=== PATIENT | male | born 1975 | race Caucasian/White ===

== ENCOUNTER 2017-10-11 14:22 | Emergency (ER) | payer MEDICAID ==
[2015-02-09 08:45] VITALS: BMI 34.5
[~2017-10-11 14:22] MED LIST: BENTYL 20 MG TA20 MG PO; KLONOPIN1 MG PO; PRILOSEC20 MG PO; PROZAC10 MG PO; TENORMIN50 MG PO; TRAZODONE HCL50 MG PO; TYLENOL W/CODEI1 TAB PO; VENTOLIN HFA18 GM INH
[2017-10-11 15:35] LABS: BASOPHILS 0.2 % (0-2); EOSINOPHILS 0.8 % (0-7); HEMATOCRIT 42.3 % (42.0-54.0); HEMOGLOBIN 14.1 g/dL (13.5-17.5); IMMATURE GRANULOCYTES 0.3 % (0-5); LYMPHOCYTES 18.8 % (15-50); MCH 29.1 pg (26.0-34.0); MCHC 33.3 g/dL (31.0-37.0); MCV 87.2 fL (80.0-100.0); MEAN PLATELET VOLUME 9.6 fL (7.4-10.4); MONOCYTES 5.2 % (2-11); NEUTROPHILS 74.7 % (40-80); PLATELET COUNT 253 10x3/uL (130-400); RBC 4.85 10x6/uL (4.20-6.10); RDW 13.1 % (11.5-14.5); WBC 9.5 10x3/uL (4.8-10.8)
[2017-10-11 15:56] LABS: ALBUMIN 3.5 g/dL (3.4-5.0); ANION GAP 12.8 mmol/L (8-16); BILIRUBIN - TOTAL 0.2 mg/dL (0.2-1.3); CALCIUM 8.5 mg/dL (8.5-10.1); CARBON DIOXIDE 26.3 mmol/L (21.0-32.0); CREATININE - SERUM 1.2 mg/dL (0.6-1.3); POTASSIUM - SERUM 4.1 mmol/L (3.5-5.1); PROTEIN - SERUM 6.5 g/dL (6.4-8.2)
== END 2017-10-11 17:03 | disposition home or self-care (01) ==
LOC: D.ER 14:22
PROVIDERS: Emergency Medicine
DX: K52.9 Noninfective gastroenteritis and colitis, unspecified (principal)

== ENCOUNTER 2018-02-11 08:26 | Emergency (ER) | payer MEDICAID ==
[2015-02-09 08:45] VITALS: BMI 34.5
[2018-02-11 09:15] LABS: BASOPHILS 0.2 % (0-2); EOSINOPHILS 0 % (0-7); HEMATOCRIT 47.3 % (42.0-54.0); HEMOGLOBIN 15.7 g/dL (13.5-17.5); IMMATURE GRANULOCYTES 0.4 % (0-5); LYMPHOCYTES 27.1 % (15-50); MCH 28.1 pg (26.0-34.0); MCHC 33.2 g/dL (31.0-37.0); MCV 84.6 fL (80.0-100.0); MONOCYTES 7.7 % (2-11); NEUTROPHILS 64.6 % (40-80); RBC 5.59 10x6/uL (4.20-6.10); RDW 14.9 % (11.5-14.5); WBC 5.5 10x3/uL (4.8-10.8)
[2018-02-11 09:24] LABS: PLATELET COUNT 159 10x3/uL (130-400)
[2018-02-11 09:28] LABS: ALBUMIN 3.5 g/dL (3.4-5.0); ALKALINE PHOSPHATASE 52 U/L (46-116); ALT (SGPT) 39 U/L (10-68); BILIRUBIN - TOTAL 0.29 mg/dL (0.2-1.3); CALC OSMOLALITY 276 mosm/kg (275-300); CALCIUM 8.7 mg/dL (8.5-10.1); CARBON DIOXIDE 25.2 mmol/L (21.0-32.0); CHLORIDE - SERUM 103 mmol/L (98-107); GLUCOSE 94 mg/dL (74-106); POTASSIUM - SERUM 4.1 mmol/L (3.5-5.1); PROTEIN - SERUM 6.5 g/dL (6.4-8.2); SODIUM 138 mmol/L (136-145); UREA NITROGEN 14 mg/dL (7-18); eGFR NON AFRICAN AMERICAN 88 mL/min (90-120)
[2018-02-11 09:40] LABS: CKMB 0.4 U/L (0.0-3.6); CREATINE KINASE 71 UL (21-232)
[2018-02-11 09:41] LABS: TROPONIN-I < 0.017 ng/mL (0.000-0.060)
== END 2018-02-11 10:45 | disposition home or self-care (01) ==
LOC: D.ER 08:26
PROVIDERS: Family Medicine
DX: S20.219A Contusion of unspecified front wall of thorax, initial encounter (principal); S10.93XA Contusion of unspecified part of neck, initial encounter; S00.83XA Contusion of other part of head, initial encounter; X58.XXXA Exposure to other specified factors, initial encounter; Y93.89 Activity, other specified; Y92.89 Other specified places as the place of occurrence of the external cause; M79.1 Myalgia; T14.8XXA Other injury of unspecified body region, initial encounter; I10 Essential (primary) hypertension

== ENCOUNTER 2018-02-24 02:39 | Emergency (ER) | payer MEDICAID ==
[2015-02-09 08:45] VITALS: BMI 34.5
[2018-02-24 03:46] LABS: BASOPHILS 0.2 % (0-2); EOSINOPHILS 0 % (0-7); HEMATOCRIT 45.4 % (42.0-54.0); HEMOGLOBIN 15.3 g/dL (13.5-17.5); IMMATURE GRANULOCYTES 0.6 % (0-5); LYMPHOCYTES 23.3 % (15-50); MCH 28.4 pg (26.0-34.0); MCHC 33.7 g/dL (31.0-37.0); MCV 84.4 fL (80.0-100.0); MEAN PLATELET VOLUME 9.8 fL (7.4-10.4); MONOCYTES 5.7 % (2-11); NEUTROPHILS 70.2 % (40-80); PLATELET COUNT 269 10x3/uL (130-400); RBC 5.38 10x6/uL (4.20-6.10); WBC 9.9 10x3/uL (4.8-10.8)
[2018-02-24 03:59] LABS: ALBUMIN 3.6 g/dL (3.4-5.0); ANION GAP 13.4 mmol/L (8-16); BILIRUBIN - TOTAL 0.13 mg/dL (0.2-1.3); CALCIUM 8.7 mg/dL (8.5-10.1); CARBON DIOXIDE 27.5 mmol/L (21.0-32.0); CREATININE - SERUM 1.3 mg/dL (0.6-1.3); POTASSIUM - SERUM 4.9 mmol/L (3.5-5.1); PROTEIN - SERUM 6.8 g/dL (6.4-8.2)
== END 2018-02-24 04:59 | disposition home or self-care (01) ==
LOC: D.ER 02:39
PROVIDERS: Emergency Medicine
DX: S16.1XXA Strain of muscle, fascia and tendon at neck level, initial encounter (principal); W01.0XXA Fall on same level from slipping, tripping and stumbling without subsequent striking against object, initial encounter; Y93.01 Activity, walking, marching and hiking; Y92.410 Unspecified street and highway as the place of occurrence of the external cause; R07.89 Other chest pain; F17.200 Nicotine dependence, unspecified, uncomplicated; I10 Essential (primary) hypertension

== ENCOUNTER 2018-03-24 03:46 | Emergency (ER) | payer MEDICAID ==
[2015-02-09 08:45] VITALS: BMI 34.5
[2018-03-24 04:53] LABS: BASOPHILS 0.3 % (0-2); EOSINOPHILS 0 % (0-7); HEMATOCRIT 40.9 % (42.0-54.0); HEMOGLOBIN 13.6 g/dL (13.5-17.5); IMMATURE GRANULOCYTES 0.3 % (0-5); LYMPHOCYTES 20.7 % (15-50); MCH 28.4 pg (26.0-34.0); MCHC 33.3 g/dL (31.0-37.0); MCV 85.4 fL (80.0-100.0); MEAN PLATELET VOLUME 9.5 fL (7.4-10.4); MONOCYTES 5.8 % (2-11); NEUTROPHILS 72.9 % (40-80); RBC 4.79 10x6/uL (4.20-6.10); RDW 15.2 % (11.5-14.5); WBC 7.6 10x3/uL (4.8-10.8)
[2018-03-24 04:55] LABS: PLATELET COUNT 174 10x3/uL (130-400)
[2018-03-24 05:04] LABS: ALBUMIN 3.8 g/dL (3.4-5.0); ANION GAP 15.1 mmol/L (8-16); BILIRUBIN - TOTAL 0.14 mg/dL (0.2-1.3); CALCIUM 9.2 mg/dL (8.5-10.1); CARBON DIOXIDE 27.6 mmol/L (21.0-32.0); CREATININE - SERUM 1.3 mg/dL (0.6-1.3); POTASSIUM - SERUM 4.7 mmol/L (3.5-5.1); PROTEIN - SERUM 7.2 g/dL (6.4-8.2)
== END 2018-03-24 06:40 | disposition home or self-care (01) ==
LOC: D.ER 03:46
PROVIDERS: Family Medicine
DX: M54.5 Low back pain (principal); W19.XXXA Unspecified fall, initial encounter; Y93.01 Activity, walking, marching and hiking; Y92.410 Unspecified street and highway as the place of occurrence of the external cause; I10 Essential (primary) hypertension

== ENCOUNTER 2018-04-11 12:45 | Emergency (ER) | payer MEDICAID ==
[~2018-04-11] VITALS: Ht 170.2 cm; Wt 81.8 kg
[2018-04-11 12:48] VITALS: Ht 170.2 cm; Wt 81.8 kg
[2018-04-11] MEDS ORDERED: VOLTAREN75 MG PO (13:25)
[2018-04-11] MEDS ORDERED: ROBAXIN-750750 MG PO (13:25)
[2018-04-11 14:30] VITALS: BP 136/82
== END 2018-04-11 14:30 | disposition home or self-care (01) ==
LOC: D.ER 12:45
DX: I10 Essential (primary) hypertension (principal); F17.200 Nicotine dependence, unspecified, uncomplicated

== ENCOUNTER 2018-06-16 02:45 | Emergency (ER) | payer MEDICAID ==
[~2018-06-16] VITALS: Ht 170.2 cm; Wt 81.8 kg
[~2018-06-16 02:45] MED LIST changes: +ROBAXIN-750750 MG PO; +VOLTAREN75 MG PO
[2018-06-16 02:51] VITALS: Ht 170.2 cm; Wt 81.8 kg
[2018-06-16] MEDS ORDERED: HYDROCODON-ACE1 EAC7 PO (03:41)
[2018-06-16 04:08] VITALS: BP 137/82
[2018-07-18] MEDS ORDERED: ZYPREXA2.5 MG (14:41)
[2018-07-18] MEDS ORDERED: LISINOPRIL10 MG (14:42)
[2018-07-18] MEDS ORDERED: KEPPRA500 MG (14:44)
== END 2018-06-16 04:11 | disposition home or self-care (01) ==
LOC: D.ER 02:45
DX: S92.401A Displaced unspecified fracture of right great toe, initial encounter for closed fracture (principal); W18.30XA Fall on same level, unspecified, initial encounter; Y93.89 Activity, other specified; Y92.019 Unspecified place in single-family (private) house as the place of occurrence of the external cause; M79.1 Myalgia; M79.604 Pain in right leg; I10 Essential (primary) hypertension; F17.200 Nicotine dependence, unspecified, uncomplicated; G40.909 Epilepsy, unspecified, not intractable, without status epilepticus

== ENCOUNTER 2018-07-18 14:27 | Emergency (ER) | payer MEDICAID ==
[~2018-07-18] VITALS: Ht 170.2 cm; Wt 85.9 kg
[~2018-07-18 14:27] MED LIST changes: +HYDROCODON-ACE1 EAC7 PO
[2018-07-18 14:38] VITALS: Ht 170.2 cm; Wt 85.9 kg
[2018-07-18] MEDS ORDERED: NEURONTIN 300300 MG PO (14:40)
[2018-07-18] MEDS ORDERED: ZYPREXA20 MG PO (14:41)
[2018-07-18] MEDS ORDERED: IMIPRAMINE10 MG PO (14:41)
[2018-07-18] MEDS ORDERED: LISINOPRIL10 MG PO (14:42)
[2018-07-18] MEDS ORDERED: NORVASC5 MG PO (14:42)
[2018-07-18] MEDS ORDERED: KEPPRA500 MG PO (14:44)
[2018-07-18] MEDS ORDERED: NAPROSYN500 MG PO (15:54)
[2018-07-18 16:32] VITALS: BP 129/84
== END 2018-07-18 16:32 | disposition home or self-care (01) ==
LOC: D.ER 14:27
DX: M25.561 Pain in right knee (principal); W18.30XA Fall on same level, unspecified, initial encounter; Y93.89 Activity, other specified; Y92.89 Other specified places as the place of occurrence of the external cause; I10 Essential (primary) hypertension; I48.91 Unspecified atrial fibrillation; G40.909 Epilepsy, unspecified, not intractable, without status epilepticus; K21.9 Gastro-esophageal reflux disease without esophagitis; F17.200 Nicotine dependence, unspecified, uncomplicated

== ENCOUNTER 2018-07-20 16:11 | Inpatient (IN) | payer MEDICAID ==
[~2018-07-20] VITALS: Ht 170.2 cm; Wt 88.5 kg
--- NOTE | ~2018-07-20 | EC ---
PATIENT:BOB WHITFIELD DATE OF SERVICE: 07/22/18 SEX: M MEDICAL RECORD: [id number] DATE OF : [birth year] LOCATION:D.M2 D.210 AGE OF PATIENT: 42 ADMISSION DATE: 07/22/18 REFERRING PHYSICIAN: INTERPRETING PHYSICIAN: MARIA FERNANDA BEACH MD ECHOCARDIOGRAM REPORT ECHO CHARGES Date: CLINICAL DIAGNOSIS: ECHOCARDIOGRAPHIC MEASUREMENTS (adult normal given) AC root (d.<3.7cm) cm LV Septum d (<1.2 cm> cm Valve Excursion cm LV Septum (systole) cm Left Atria (s.<4.0cm> cm LVPW d(<1.2cm) cm RV (d.<2.3cm) cm LVPW (sytole) cm LV diastole(<5.6CM) cm MV E-F(>70mm/sec) cm LV systole cm LVOT Diameter cm MV exc.(>10mm) cm Est.ejection fraction (50-75%) % DOPPLER: LVIT cm/sec A cm/sec E cm/sec LA cm/sec RVSP mmHg LVOT cm/sec AOP1/2T m/s Asc. Ao cm/sec RVOT cm/sec RA cm/sec PA cm/sec AV Gradient Peak mmHg AV Mean mmHg AV Area cm MV Gradient Peak mmHg MV Mean mmHg MV Area cm COMMENTS: Scale Tank Operator: Residential Property Consultant: [email or web address]# Pericardial Effusion DATE OF SERVICE: FINDINGS: 1. Left ventricular chamber size is within normal limits. Left ventricular systolic function is normal. Overall ejection fraction estimated at 60%. 2. Left atrium, right atrium, and right ventricular chamber sizes are within normal limits. 3. Valvular structures have normal structure and motion. 4. Doppler interrogation reveals no significant valvular insufficiency or stenosis. ECHOCARDIOGRAM REPORT [id number] BOB WHITFIELD 5. No evidence of pericardial effusion or left ventricular thrombus. TRANSINT:[id number] Voice Confirmation ID: [id number] DOCUMENT ID: [id number] MARIA FERNANDA BEACH MD at 1859 CC: [id number] DICTATION DATE: 07/22/18 0856 HAIRSPRING ADJUSTER: 07/22/18 0912 ADM IN [place] [id number] [place] [address]
[~2018-07-20 16:11] MED LIST changes: +IMIPRAMINE10 MG PO; +KEPPRA500 MG PO; +LISINOPRIL10 MG PO; +NAPROSYN500 MG PO; +NEURONTIN 300300 MG PO; +NORVASC5 MG PO; +ZYPREXA20 MG PO
[2018-07-20 18:10] LABS: BASOPHILS 0.2 % (0-2); EOSINOPHILS 0.3 % (0-7); HEMATOCRIT 38.9 % (42.0-54.0); HEMOGLOBIN 13.1 g/dL (13.5-17.5); IMMATURE GRANULOCYTES 0.8 % (0-5); LYMPHOCYTES 10.7 % (15-50); MCHC 33.7 g/dL (31.0-37.0); MCV 89.2 fL (80.0-100.0); MEAN PLATELET VOLUME 9.3 fL (7.4-10.4); MONOCYTES 7.8 % (2-11); NEUTROPHILS 80.2 % (40-80); PLATELET COUNT 208 10x3/uL (130-400); RBC 4.36 10x6/uL (4.20-6.10); RDW 13.9 % (11.5-14.5); WBC 14.6 10x3/uL (4.8-10.8)
[2018-07-20 18:31] LABS: ALBUMIN 2.9 g/dL (3.4-5.0); ANION GAP 13.2 mmol/L (8-16); BILIRUBIN - TOTAL 0.45 mg/dL (0.2-1.3); CALCIUM 9.2 mg/dL (8.5-10.1); CARBON DIOXIDE 27.6 mmol/L (21.0-32.0); CREATININE - SERUM 1.2 mg/dL (0.6-1.3); POTASSIUM - SERUM 4.8 mmol/L (3.5-5.1); PROTEIN - SERUM 7.2 g/dL (6.4-8.2)
[2018-07-20 20:00] VITALS: BP 117/71
[2018-07-20 22:04] VITALS: BP 117/71; BMI 30.6
[2018-07-21 07:16] VITALS: BP 108/69
[2018-07-21 11:14] VITALS: BP 138/92
[2018-07-21] MEDS ORDERED: LIPITOR20 MG PO (14:07)
[2018-07-21] MEDS ORDERED: CLARITIN 10 MG10 MG PO (14:15)
[2018-07-21] MEDS ORDERED: NORCO 5/325 TAB1 TAB PO (14:17)
[2018-07-21] MEDS ORDERED: ALBUTEROL SULF8.5 GM INH (14:18)
[2018-07-21] MEDS ORDERED: ROBAXIN500 MG PO (14:21)
[2018-07-21 15:03] LABS: UDS - AMPHET NEGATIVE QUAL (NEGATIVE); UDS - BARB NEGATIVE QUAL (NEGATIVE); UDS - BENZO NEGATIVE QUAL (NEGATIVE); UDS - COCAINE NEGATIVE QUAL (NEGATIVE); UDS - OPIATE POSITIVE QUAL (NEGATIVE); UDS - PCP NEGATIVE QUAL (NEGATIVE); UDS - THC NEGATIVE QUAL (NEGATIVE)
[2018-07-21 15:06] VITALS: BP 127/82
[2018-07-21 17:07] LABS: APPEARANCE CLEAR (CLEAR); BILIRUBIN NEGATIVE (NEGATIVE); COLOR YELLOW (YELLOW); GLUCOSE NEGATIVE (NEGATIVE); KETONE NEGATIVE (NEGATIVE); NITRITE NEGATIVE (NEGATIVE); PROTEIN NEGATIVE (NEGATIVE); UROBILINOGEN NORMAL (NORMAL)
[2018-07-21 21:18] VITALS: BP 125/80
[2018-07-22] VITALS: BP 134/70
[2018-07-22 04:00] VITALS: BP 130/60
[2018-07-22 06:20] LABS: BASOPHILS 0.3 % (0-2); EOSINOPHILS 3.4 % (0-7); HEMATOCRIT 37.8 % (42.0-54.0); HEMOGLOBIN 12.9 g/dL (13.5-17.5); IMMATURE GRANULOCYTES 4.2 % (0-5); LYMPHOCYTES 17.1 % (15-50); MCH 30.7 pg (26.0-34.0); MCHC 34.1 g/dL (31.0-37.0); MEAN PLATELET VOLUME 9.1 fL (7.4-10.4); MONOCYTES 10.4 % (2-11); NEUTROPHILS 64.6 % (40-80); PLATELET COUNT 228 10x3/uL (130-400); WBC 11.8 10x3/uL (4.8-10.8)
[2018-07-22 06:45] LABS: CALCIUM 8.5 mg/dL (8.5-10.1); CREATININE - SERUM 1.2 mg/dL (0.6-1.3)
[2018-07-22 06:54] LABS: ANION GAP 18.5 mmol/L (8-16); CARBON DIOXIDE 20.4 mmol/L (21.0-32.0); POTASSIUM - SERUM 3.9 mmol/L (3.5-5.1)
[2018-07-22 08:36] VITALS: BP 128/81
[2018-07-22 11:41] VITALS: BP 136/80
[2018-07-22 15:48] VITALS: BP 127/79
[2018-07-22 20:00] VITALS: BP 116/62
[2018-07-23 04:00] VITALS: BP 110/65
[2018-07-23 04:21] LABS: BASOPHILS 0.3 % (0-2); EOSINOPHILS 3.4 % (0-7); HEMATOCRIT 32.8 % (42.0-54.0); HEMOGLOBIN 11.3 g/dL (13.5-17.5); IMMATURE GRANULOCYTES 6.4 % (0-5); LYMPHOCYTES 16.1 % (15-50); MCH 30.1 pg (26.0-34.0); MCHC 34.5 g/dL (31.0-37.0); MEAN PLATELET VOLUME 9.2 fL (7.4-10.4); MONOCYTES 8.6 % (2-11); NEUTROPHILS 65.2 % (40-80); RBC 3.75 10x6/uL (4.20-6.10); RDW 13.7 % (11.5-14.5)
[2018-07-23 04:25] LABS: MCV 87.5 fL (80.0-100.0); PLATELET COUNT 180 10x3/uL (130-400)
[2018-07-23 04:26] LABS: ANION GAP 12.2 mmol/L (8-16); CALCIUM 8.4 mg/dL (8.5-10.1); CARBON DIOXIDE 24.4 mmol/L (21.0-32.0); CREATININE - SERUM 1.2 mg/dL (0.6-1.3); POTASSIUM - SERUM 3.6 mmol/L (3.5-5.1)
[2018-07-23 08:04] VITALS: BP 114/73
[2018-07-23 10:58] VITALS: BP 125/70
[2018-07-23 12:03] VITALS: Ht 170.2 cm; Wt 88.5 kg
[2018-07-23 21:04] VITALS: BP 147/93
[2018-07-24 05:19] LABS: CALC OSMOLALITY 274 mosm/kg (275-300); CALCIUM 8.7 mg/dL (8.5-10.1); CARBON DIOXIDE 28.8 mmol/L (21.0-32.0); CHLORIDE - SERUM 104 mmol/L (98-107); CREATININE - SERUM 1.1 mg/dL (0.6-1.3); GLUCOSE 110 mg/dL (74-106); SODIUM 138 mmol/L (136-145); eGFR NON AFRICAN AMERICAN 79 mL/min (90-120)
[2018-07-24 05:24] LABS: BASOPHILS 0.3 % (0-2); HEMATOCRIT 33.9 % (42.0-54.0); HEMOGLOBIN 11.4 g/dL (13.5-17.5); IMMATURE GRANULOCYTES 8.4 % (0-5); LYMPHOCYTES 17.5 % (15-50); MCH 29.8 pg (26.0-34.0); MCHC 33.6 g/dL (31.0-37.0); MCV 88.5 fL (80.0-100.0); MEAN PLATELET VOLUME 9.6 fL (7.4-10.4); NEUTROPHILS 62.8 % (40-80); RBC 3.83 10x6/uL (4.20-6.10); RDW 13.6 % (11.5-14.5); WBC 10.8 10x3/uL (4.8-10.8)
[2018-07-24 05:25] LABS: PLATELET COUNT 225 10x3/uL (130-400)
[2018-07-24 05:27] LABS: UREA NITROGEN 8 mg/dL (7-18)
[2018-07-24 05:48] VITALS: BP 128/33
[2018-07-24 20:29] VITALS: BP 126/81
[2018-07-25 03:06] LABS: ACID FAST SMEAR Negative (()); AFB SPECIMEN PROCESSING Concentration (())
[2018-07-25 05:16] VITALS: BP 110/75
[2018-07-25 05:27] LABS: BASOPHILS 0.3 % (0-2); EOSINOPHILS 3.2 % (0-7); IMMATURE GRANULOCYTES 6.4 % (0-5); LYMPHOCYTES 18.3 % (15-50); MCH 29.5 pg (26.0-34.0); MCHC 33.3 g/dL (31.0-37.0); MCV 88.5 fL (80.0-100.0); MEAN PLATELET VOLUME 9.3 fL (7.4-10.4); MONOCYTES 8.4 % (2-11); NEUTROPHILS 63.4 % (40-80); PLATELET COUNT 254 10x3/uL (130-400); RBC 3.73 10x6/uL (4.20-6.10); RDW 13.7 % (11.5-14.5); WBC 12.3 10x3/uL (4.8-10.8)
[2018-07-25 05:39] LABS: CALC OSMOLALITY 278 mosm/kg (275-300); CALCIUM 8.9 mg/dL (8.5-10.1); CARBON DIOXIDE 27.3 mmol/L (21.0-32.0); CHLORIDE - SERUM 106 mmol/L (98-107); GLUCOSE 104 mg/dL (74-106); POTASSIUM - SERUM 3.8 mmol/L (3.5-5.1); SODIUM 141 mmol/L (136-145); UREA NITROGEN 6 mg/dL (7-18); eGFR NON AFRICAN AMERICAN 88 mL/min (90-120)
[2018-07-25 08:23] VITALS: BP 107/70
[2018-07-25 15:21] VITALS: BP 153/57
[2018-07-25 20:00] VITALS: BP 100/67
[2018-07-26 00:56] VITALS: BP 101/61
[2018-07-26 04:00] VITALS: BP 118/62
[2018-07-26 05:20] LABS: BASOPHILS 0.3 % (0-2); EOSINOPHILS 2.4 % (0-7); HEMATOCRIT 33.5 % (42.0-54.0); HEMOGLOBIN 11.2 g/dL (13.5-17.5); IMMATURE GRANULOCYTES 5.8 % (0-5); MCH 29.7 pg (26.0-34.0); MCHC 33.4 g/dL (31.0-37.0); MCV 88.9 fL (80.0-100.0); MEAN PLATELET VOLUME 8.7 fL (7.4-10.4); MONOCYTES 6.3 % (2-11); NEUTROPHILS 67.2 % (40-80); PLATELET COUNT 266 10x3/uL (130-400); RBC 3.77 10x6/uL (4.20-6.10); RDW 13.9 % (11.5-14.5); WBC 11.5 10x3/uL (4.8-10.8)
[2018-07-26 05:39] LABS: CALCIUM 8.7 mg/dL (8.5-10.1); CARBON DIOXIDE 28.7 mmol/L (21.0-32.0); CHLORIDE - SERUM 104 mmol/L (98-107); GLUCOSE 128 mg/dL (74-106); SODIUM 142 mmol/L (136-145); eGFR NON AFRICAN AMERICAN 88 mL/min (90-120)
[2018-07-26 05:47] LABS: CALC OSMOLALITY 283 mosm/kg (275-300); POTASSIUM - SERUM 4.5 mmol/L (3.5-5.1); UREA NITROGEN 10 mg/dL (7-18)
[2018-07-26 08:38] VITALS: BP 128/78
[2018-07-26 11:14] LABS: FUNGUS STAIN Final report (())
[2018-07-26 12:15] VITALS: BP 118/71
[2018-07-26] MEDS ORDERED: OMNICEF300 MG PO (15:15)
[2018-07-26] MEDS ORDERED: VIBRAMYCIN 100100 MG PO (15:16)
[2018-07-26] MEDS ORDERED: ELIQUIS5 MG PO (15:20)
[2018-07-26] MEDS ORDERED: FLORAJEN3 CAPS460 MG PO (15:21)
[2018-07-26 15:59] VITALS: BP 108/66
[2018-07-27 17:12] LABS: FUNGAL - ASP FLAVUS Negative (Neg:<1:1); FUNGAL - ASP NIGER Negative (Neg:<1:1); FUNGAL - ASPER FUMIGATUS Negative (Neg:<1:1)
[2018-08-19 11:20] LABS: FUNGUS MYCOLOGY CULTURE Final report (())
== END 2018-07-26 17:28 | disposition home or self-care (01) | DRG 871 ==
LOC: D.ER 16:11 → D.EDHOLD 18:14 → D.M3 18:14 → OBSVTIME 18:14 → D.M3 19:24 → D.M2 07-21 16:03
PROVIDERS: Emergency Medicine; Internal Medicine Nephrology; Internal Medicine Pulmonary Disease
DX: A41.9 Sepsis, unspecified organism (principal); J18.9 Pneumonia, unspecified organism; I26.90 Septic pulmonary embolism without acute cor pulmonale; E87.1 Hypo-osmolality and hyponatremia; L03.211 Cellulitis of face; F17.213 Nicotine dependence, cigarettes, with withdrawal; I76 Septic arterial embolism; J42 Unspecified chronic bronchitis; D64.9 Anemia, unspecified; G62.9 Polyneuropathy, unspecified; I10 Essential (primary) hypertension; I48.91 Unspecified atrial fibrillation; K21.9 Gastro-esophageal reflux disease without esophagitis; F25.9 Schizoaffective disorder, unspecified; E78.5 Hyperlipidemia, unspecified; G40.909 Epilepsy, unspecified, not intractable, without status epilepticus; K58.9 Irritable bowel syndrome, unspecified; F31.9 Bipolar disorder, unspecified; S00.81XA Abrasion of other part of head, initial encounter; X58.XXXA Exposure to other specified factors, initial encounter

== ENCOUNTER 2018-10-07 23:59 | Emergency (ER) | payer MEDICAID ==
[~2018-10-07] VITALS: Ht 170.2 cm; Wt 90.0 kg
[~2018-10-07 23:59] MED LIST changes: +ALBUTEROL SULF8.5 GM INH; +CLARITIN 10 MG10 MG PO; +ELIQUIS5 MG PO; +FLORAJEN3 CAPS460 MG PO; +LIPITOR20 MG PO; +NORCO 5/325 TAB1 TAB PO; +OMNICEF300 MG PO; +ROBAXIN500 MG PO; +VIBRAMYCIN 100100 MG PO
[2018-10-08 00:09] VITALS: Ht 170.2 cm; Wt 90.0 kg
[2018-10-08] MEDS ORDERED: ROBAXIN500 MG PO (01:32)
[2018-10-08 01:40] VITALS: BP 121/77
== END 2018-10-08 01:40 | disposition home or self-care (01) ==
LOC: D.ER 23:59
DX: S16.1XXA Strain of muscle, fascia and tendon at neck level, initial encounter (principal); W01.0XXA Fall on same level from slipping, tripping and stumbling without subsequent striking against object, initial encounter; Y93.89 Activity, other specified; Y92.014 Private driveway to single-family (private) house as the place of occurrence of the external cause; F17.200 Nicotine dependence, unspecified, uncomplicated; I10 Essential (primary) hypertension; G40.909 Epilepsy, unspecified, not intractable, without status epilepticus

== ENCOUNTER → 2019-03-23 08:46 | Outpatient (CLI) | payer MEDICAID | END | disposition home or self-care (01) | LOC: D.CT 08:46 | DX: I26.99 Other pulmonary embolism without acute cor pulmonale (principal) ==

== ENCOUNTER 2019-06-08 11:58 | Emergency (ER) | payer MEDICAID ==
[~2019-06-08] VITALS: Ht 170.2 cm; Wt 89.5 kg
[2019-06-08 12:10] VITALS: Ht 170.2 cm; Wt 89.5 kg
[2019-06-08] MEDS ORDERED: CLEOCIN HCL75 MG (12:17)
[2019-06-08] MEDS ORDERED: AMOXICILLIN875 MG PO (12:18)
[2019-06-08] MEDS ORDERED: CLEOCIN HCL300 MG PO (12:18)
[2019-06-08] MEDS ORDERED: SEROQUEL400 MG PO (12:19)
[2019-06-08] MEDS ORDERED: BUPROPION HCL100 M1 PO (12:20)
[2019-06-08] MEDS ORDERED: ULTRAM50 MG PO (13:50)
[2019-06-08 13:59] VITALS: BP 139/79
== END 2019-06-08 13:56 | disposition home or self-care (01) ==
LOC: D.ER 11:58
DX: S89.91XA Unspecified injury of right lower leg, initial encounter (principal); W07.XXXA Fall from chair, initial encounter; I10 Essential (primary) hypertension; K21.9 Gastro-esophageal reflux disease without esophagitis; F41.8 Other specified anxiety disorders